=== PATIENT | male | born 1955 | race Caucasian/White ===

== ENCOUNTER 2022-04-01 17:10 | Emergency (ER) | payer MEDICARE ==
[~2022-04-01] VITALS: Ht 177.8 cm; Wt 86.4 kg
[2022-04-01 17:19] VITALS: TEMP 99.3
[2022-04-01] MEDS ORDERED: COZAAR 50MG50 MG/TAB PO (17:34)
[2022-04-01] MEDS ORDERED: LANTUS100 U/ML SQ (17:35)
[2022-04-01 18:07] LABS: BASO % 0.7 % (0.0-2.0); EOS # 0.3 K/mm3 (0.0-0.7); GRAN # 2.1 K/mm3 (1.4-6.5); GRAN % 45.6 % (42.2-75.2); HEMOGLOBIN 11.9 g/dl (13.5-18.0); LYMPH # 1.8 K/mm3 (1.2-3.4); LYMPH % 38.7 % (20.0-51.0); MEAN CELL VOLUME 86 fl (80.0-100.0); MEAN CORPUSCULAR HEMOGLOBIN 28 pg (27-31); MEAN CORPUSCULAR HGB CONC 33 g/dl (33.0-37.0); MEAN PLATELET VOLUME 10.3 fl (7.4-10.4); MONO # 0.4 K/mm3 (0.1-0.6); MONO % 8.8 % (1.7-9.3); PLATELET COUNT 209 K/mm3 (130-400); REDCELL DISTRIBUTION WIDTH-CV 13.2 % (11.5-14.5)
[2022-04-01 18:11] LABS: HEMATOCRIT 36.2 % (42.0-52.0)
[2022-04-01 18:16] LABS: ALANINE AMINOTRANSFERASE 42 U/L (0-55); ALBUMIN 3.6 gm/dL (3.4-4.8); ALKALINE PHOSPHATASE 77 U/L (40-150); ANION GAP 12 mmol/L (7-16); AST,SGOT 20 U/L (5-34); BILIRUBIN,TOTAL 0.7 mg/dL (0.2-1.2); BLOOD UREA NITROGEN 20 mg/dL (8-26); C-REACTIVE PROTEIN 0.14 mg/dL (0.00-0.50); CARBON DIOXIDE 26 mmol/L (23-31); CHLORIDE 103 mmol/L (98-107); CREATININE, serum 0.95 mg/dL (0.72-1.25); GLUCOSE 193 mg/dL (70-99); POTASSIUM 4.2 mmol/L (3.5-4.5); SODIUM 141 mmol/L (136-145); TOTAL PROTEIN 6.7 gm/dL (6.2-8.1)
[2022-04-01 18:25] LABS: TROPONIN-I < 0.010 ng/mL (0.00-0.033)
[2022-04-01 18:56] VITALS: BP 145/78; PULSE 78
== END 2022-04-01 18:58 | disposition home or self-care (01) ==
LOC: COL.ER 17:10
PROVIDERS: Emergency Medicine
DX: R07.89 Other chest pain (principal); Z20.822 Contact with and (suspected) exposure to COVID-19

== ENCOUNTER 2022-11-18 05:16 | Day surgery (SDC) | payer MEDICARE ==
[~2022-11-18] VITALS: Ht 177.8 cm; Wt 85.6 kg
[~2022-11-18 05:16] MED LIST: COZAAR 50MG50 MG/TAB PO; LANTUS100 U/ML SQ
[2022-11-18 06:43] VITALS: BP 157/83; PULSE 78; TEMP 98.6
[2022-11-18] MEDS ORDERED: BACTRIM DS 8001 TAB PO (06:57)
[2022-11-18] MEDS ORDERED: NORCO 325 MG-51 TAB (06:57)
[2022-11-18] MEDS ORDERED: GLUCOPHAGE XR750 MG PO (06:58)
[2022-11-18 08:25] VITALS: BP 155/76; PULSE 84; TEMP 97.4
[2022-11-18 08:40] VITALS: BP 154/69; PULSE 84
[2022-11-18 08:55] VITALS: BP 156/76; PULSE 84
[2022-11-18 09:10] VITALS: BP 135/67; PULSE 80
--- NOTE | 2022-11-18 09:35 | NUR ---
0825 RETURNS TO ROOM 2 PER CART. DROWY, AROUSES EASILY TO VERBAL STIMULI. HOB ELEVATED 40 DEGREES. VITAL SIGNS OBTAINED. OSMANY WRAPPED DRESSING RIGHT FOOT CLEAN DRY AND INTACT. EXTREMITY ELEVATED. ICE PACK IN PLACE. POST OP SHOE ON. SON AT BEDSIDE. ASSISTS WITH INTERPRETATION NEEDED. PATIENT DENIES PAIN. CALL LIGHT AT SIDE. 0840 AROUSES EASILY. CONTINUES TO DENY PAIN. 0855 TOLERATES PO JUICE WITHOUT NAUSEA. 0908 DISCHARGE INSTRUCTIONS REVIEWED WITH PATIENT AND SON. UNDERSTANDING VERBALIZED. COPY PROVIDED IN DISCHARGE FOLDER 0925 SITS ON EDGE OF BED. DRESSES WITH MINIMAL ASSISTANCE FROM SON.
== END 2022-11-18 09:35 | disposition home or self-care (01) ==
LOC: SDCO 05:16
DX: M86.8X7 Other osteomyelitis, ankle and foot (principal); K21.9 Gastro-esophageal reflux disease without esophagitis
CPT/HCPCS: J0690; J1100; J2405; J2704; J3010; J7120